=== PATIENT | female | born 1965 ===

== ENCOUNTER 2018-08-08 10:10 | Outpatient (CLI) | payer OTHER | END 2018-08-08 10:18 | disposition home or self-care (01) | LOC: MAMO-SONO 10:10 | DX: Z12.31 Encounter for screening mammogram for malignant neoplasm of breast (principal); N63.10 Unspecified lump in the right breast, unspecified quadrant; N63.20 Unspecified lump in the left breast, unspecified quadrant; N64.4 Mastodynia; N60.11 Diffuse cystic mastopathy of right breast; E04.8 Other specified nontoxic goiter ==

== ENCOUNTER 2018-10-19 11:09 | Outpatient (CLI) | payer OTHER | END 2018-10-19 11:19 | disposition home or self-care (01) | LOC: RAD 11:09 | DX: M25.571 Pain in right ankle and joints of right foot (principal) ==

== ENCOUNTER 2018-10-31 10:46 | Outpatient (CLI) | payer OTHER | END 2018-10-31 10:48 | disposition home or self-care (01) | LOC: RAD 10:46 | DX: M54.5 Low back pain (principal) ==

== ENCOUNTER 2018-11-07 09:41 | Outpatient (CLI) | payer OTHER | END 2018-11-07 09:43 | disposition home or self-care (01) | LOC: SONOGRAMA 09:41 → MAMO-SONO 10:15 | DX: R16.0 Hepatomegaly, not elsewhere classified (principal) ==

== ENCOUNTER 2018-11-07 11:21 | Outpatient (CLI) | payer OTHER | END 2018-11-07 13:59 | disposition home or self-care (01) | LOC: NUCLEAR 11:21 | DX: M81.0 Age-related osteoporosis without current pathological fracture (principal) ==

== ENCOUNTER 2020-05-22 14:40 | Outpatient (CLI) | payer OTHER | END 2020-05-22 15:33 | disposition home or self-care (01) | LOC: MRI 14:40 | PROVIDERS: ATTEND Psychiatry & Neurology Clinical Neurophysiology | DX: M87.051 Idiopathic aseptic necrosis of right femur (principal); M25.551 Pain in right hip | CPT/HCPCS: 73721 ==

== ENCOUNTER 2020-05-28 14:28 | Outpatient (CLI) | payer OTHER | END 2020-05-28 14:47 | disposition home or self-care (01) | LOC: MAMO-SONO 14:28 | DX: N64.89 Other specified disorders of breast (principal); Z12.31 Encounter for screening mammogram for malignant neoplasm of breast ==

== ENCOUNTER 2020-06-18 09:40 | Outpatient (CLI) | payer OTHER | END 2020-06-18 10:03 | disposition home or self-care (01) | LOC: RAD 09:40 | DX: M17.0 Bilateral primary osteoarthritis of knee (principal); M16.0 Bilateral primary osteoarthritis of hip ==

== ENCOUNTER 2022-01-14 09:16 | Outpatient (CLI) | payer OTHER | END 2022-01-14 09:36 | disposition home or self-care (01) | LOC: MAMO-SONO 09:16 | PROVIDERS: ATTEND Obstetrics & Gynecology Maternal & Fetal Medicine | DX: Z12.31 Encounter for screening mammogram for malignant neoplasm of breast (principal); N60.11 Diffuse cystic mastopathy of right breast; N64.4 Mastodynia; N63.0 Unspecified lump in unspecified breast; N60.19 Diffuse cystic mastopathy of unspecified breast; N84.0 Polyp of corpus uteri; D25.9 Leiomyoma of uterus, unspecified ==